=== PATIENT | female | born 1965 | race Caucasian/White ===

== ENCOUNTER 2021-10-30 17:10 | Emergency (ER) | payer OTHER ==
[2021-10-30 17:53] LABS: Absolute Neutrophil Ct (ANC) 6.78 (1.4-6.9); Basophil (Absolute #) 0.05 (0-0.4); Eosinophil % 0.5 % (0.00-5.0); Eosinophil (Absolute #) 0.05 (0-0.5); Hematocrit 42.7 % (35-47); Hemoglobin 14.3 gm/dl (12.0-16.0); Lymphocyte (Absolute #) 1.95 (1.0-4.6); Lymphocytes % 20.8 % (24.0-44.0); Mean Cell Volume 83.7 fl (78-100); Mean Corpuscular Hgb Concent. 33.5 g/dl (32-36); Mean Platelet Volume 10.7 fl (7.5-11.0); Monocyte (Absolute #) 0.55 (0.0-1.3); Monocytes % 5.9 % (0.0-12.0); Neutrophil % 72.3 % (36.0-66.0); Platelet Count 240 K/mm3 (150-450); Red Cell Distribution Width 13.9 % (11.5-14.0); White Blood Count 9.4 K/mm3 (4.0-10.5)
[2021-10-30 17:58] LABS: Appearance CLEAR (CLEAR); Bilirubin NEGATIVE (NEGATIVE); Dipstick done @ ? MAIN LAB; Glucose NEGATIVE (NEGATIVE); Ketones NEGATIVE (NEGATIVE); Nitrite NEGATIVE (NEGATIVE); Protein,Urine Dip NEGATIVE (Negative); RBC NEGATIVE Ery/ul (0-5); Specific Gravity 1.015 (1.005-1.025); Urobilinogen 0.2 mg/dL (0-1)
[2021-10-30 18:02] LABS: ACETAMINOPHEN < 10 ug/ml (10-30); ALBUMIN 4.4 g/dL (3.5-5.0); ALKALINE PHOSPHATASE 96 U/L (38-126); ANION GAP 13.7 MEQ/L (5-15); BLOOD UREA NITROGEN 13 mg/dL (7-17); CHLORIDE 107 mmol/L (98-107); Calcium 9.4 mg/dL (8.4-10.2); Carbon Dioxide 24 mmol/L (22-30); Creatinine 1 0.65 mg/dL (0.52-1.04); EST GLOMERULAR FILTRATION RATE > 60.0 ML/MIN; ETHYL ALCOHOL < 10 mg/dL (0-10); Glucose 109 mg/dL (74-106); SALICYLATE < 1.0 mg/dL (2-20); SGOT/AST 23 U/L (14-36); SGPT/ALT 26 U/L (0-35); SODIUM 140 mmol/L (137-145); Total Protein 7.2 g/dL (6.3-8.2)
[2021-10-30 18:08] LABS: Amphetamine,Urine NEGATIVE (NEGATIVE); Barbiturate,Urine NEGATIVE (NEGATIVE); Benzodiazepine,Urine NEGATIVE (NEGATIVE); Cocaine,Urine NEGATIVE (NEGATIVE); Methadone,Urine NEGATIVE (NEGATIVE); Opiate,Urine NEGATIVE (NEGATIVE); PCP,Urine NEGATIVE (NEGATIVE); THC,Urine NEGATIVE (NEGATIVE)
[2021-10-30] MEDS ORDERED: ATARAX 25 MG ONE (18:41)
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
[2021-10-30] MEDS: Neurontin 100 MG PO STA (18:54)
[2021-10-30] MEDS: ATARAX 25 MG PO ONE (18:54)
[2021-10-30] MEDS: TYLENOL EXTRA STRENGTH 500 MG PO PRN (18:55)
[2021-10-30] MEDS ORDERED: TYLENOL EXTRA STRENGTH 500 MG ONE (18:55)
[2021-10-30 19:04] LABS: INFLUENZA A NEGATIVE (NEGATIVE); INFLUENZA B NEGATIVE (NEGATIVE); RESPIRATORY SYNCTIAL VIRUS NEGATIVE (Negative); SARS-CoV-2 Xpert Express NEGATIVE (NEGATIVE)
[2021-10-30 19:16] VITALS: BP 154/94; PULSE 86; O2SAT 97
== END 2021-10-30 20:50 | disposition short-term general hospital (02) ==
LOC: ED 17:10
DX: R45.850 Homicidal ideations (principal); F31.9 Bipolar disorder, unspecified; R45.1 Restlessness and agitation; F41.9 Anxiety disorder, unspecified; J44.9 Chronic obstructive pulmonary disease, unspecified; E11.9 Type 2 diabetes mellitus without complications; K21.9 Gastro-esophageal reflux disease without esophagitis; Z79.891 Long term (current) use of opiate analgesic; Z79.84 Long term (current) use of oral hypoglycemic drugs; Z79.899 Other long term (current) drug therapy; Z72.0 Tobacco use; Z20.828 Contact with and (suspected) exposure to other viral communicable diseases
CPT/HCPCS: 0241U; 36415; 80053; 80307; 81001; 85025; 93005; 99285; G0480; A9270-GY

== ENCOUNTER 2021-11-07 19:33 | Emergency (ER) | payer OTHER ==
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
[2021-11-07 20:37] VITALS: PULSE 88
[2021-11-07 20:41] LABS: Absolute Neutrophil Ct (ANC) 4.72 (1.4-6.9); Basophil (Absolute #) 0.02 (0-0.4); Eosinophil % 1.4 % (0.00-5.0); Hematocrit 42.3 % (35-47); Hemoglobin 13.7 gm/dl (12.0-16.0); Lymphocyte (Absolute #) 2.02 (1.0-4.6); Lymphocytes % 27.9 % (24.0-44.0); Mean Cell Volume 86.5 fl (78-100); Mean Corpuscular Hgb Concent. 32.4 g/dl (32-36); Mean Platelet Volume 10.4 fl (7.5-11.0); Monocyte (Absolute #) 0.38 (0.0-1.3); Monocytes % 5.2 % (0.0-12.0); Neutrophil % 65.2 % (36.0-66.0); Platelet Count 258 K/mm3 (150-450); Red Blood Count 4.89 M/mm3 (4.1-5.4); Red Cell Distribution Width 14.1 % (11.5-14.0); White Blood Count 7.2 K/mm3 (4.0-10.5)
[2021-11-07 20:46] LABS: Appearance CLEAR (CLEAR); Bacteria RARE /HPF (NEGATIVE); Bilirubin NEGATIVE (NEGATIVE); Dipstick done @ ? MAIN LAB; Epithelial Cells RARE /HPF (FEW); Glucose NEGATIVE (NEGATIVE); Ketones NEGATIVE (NEGATIVE); Nitrite NEGATIVE (NEGATIVE); Protein,Urine Dip NEGATIVE (Negative); RBC NEGATIVE Ery/ul (0-5); Urobilinogen 0.2 mg/dL (0-1); WBC 0-2 /HPF (0-5)
[2021-11-07 20:47] LABS: Urine Cultured Indicated? NO
[2021-11-07 20:53] LABS: ACETAMINOPHEN < 10 ug/ml (10-30); ALBUMIN 4.4 g/dL (3.5-5.0); ALKALINE PHOSPHATASE 84 U/L (38-126); ANION GAP 14.3 MEQ/L (5-15); BLOOD UREA NITROGEN 9 mg/dL (7-17); CHLORIDE 103 mmol/L (98-107); Calcium 9.3 mg/dL (8.4-10.2); Carbon Dioxide 28 mmol/L (22-30); Creatinine 1 0.71 mg/dL (0.52-1.04); EST GLOMERULAR FILTRATION RATE > 60.0 ML/MIN; ETHYL ALCOHOL < 10 mg/dL (0-10); Glucose 87 mg/dL (74-106); Potassium 3.9 mmol/L (3.5-5.1); SALICYLATE < 1.0 mg/dL (2-20); SGOT/AST 20 U/L (14-36); SGPT/ALT 17 U/L (0-35); SODIUM 141 mmol/L (137-145); Total Protein 7.2 g/dL (6.3-8.2)
[2021-11-07 21:00] LABS: Amphetamine,Urine POSITIVE (NEGATIVE); Barbiturate,Urine NEGATIVE (NEGATIVE); Benzodiazepine,Urine NEGATIVE (NEGATIVE); Cocaine,Urine NEGATIVE (NEGATIVE); Methadone,Urine NEGATIVE (NEGATIVE); Opiate,Urine NEGATIVE (NEGATIVE); PCP,Urine NEGATIVE (NEGATIVE); THC,Urine NEGATIVE (NEGATIVE)
[2021-11-07 21:27] LABS: T4 (Thyroxine) 9.85 ug/dL (5.53-10.96); TSH, 3RD Generation 7.06 mIU/L (0.47-4.68)
[2021-11-07 21:44] VITALS: BP 130/87
[2021-11-07 22:27] VITALS: O2SAT 100
== END 2021-11-07 21:46 | disposition home or self-care (01) ==
LOC: ED 19:33
DX: E03.9 Hypothyroidism, unspecified (principal); R53.83 Other fatigue; F31.9 Bipolar disorder, unspecified; E11.9 Type 2 diabetes mellitus without complications; J44.9 Chronic obstructive pulmonary disease, unspecified; K21.9 Gastro-esophageal reflux disease without esophagitis; Z79.899 Other long term (current) drug therapy; Z72.0 Tobacco use
CPT/HCPCS: 36415; 80053; 80164; 80307; 81015; 84436; 84443; 85025; 99283; G0480

== ENCOUNTER 2021-11-20 19:55 | Emergency (ER) | payer OTHER ==
[2021-11-20] MEDS ORDERED: Sodium Chloride 0.9% 1000 ML 1,000 ML IV STA ×2 (20:22)
[2021-11-20] MEDS ORDERED: Zofran 4 MG/2 ML VIAL IV ONE (20:23)
[2021-11-20] MEDS ORDERED: Zofran 4 MG/2 ML VIAL ONE (20:26)
[2021-11-20] MEDS ORDERED: Sodium Chloride 0.9% 1000 ML 2,000 ML ONE (20:26)
--- NOTE | 2021-11-20 20:48 | ERPHSYRPT ---
- History of Present Illness Historian: patient Exam Limitations: no limitations Patient Subjective Stated Complaint: pt states she has had vomiting and diarrhea for 4 days. started coughing and had runny nose today. states she feels like shes dehydrated. Triage Nursing Assessment: pt alert and oriented, answers questions approp. pt ambulatory with steady gait ntoed. respirations nonlabored with lungs cta bilat. skin pink warm and dry. muscous membranes pink and moist. Physician History: 55 yo WF w N/V/D x 4days. Pt has developed cough/coryza over the last 2 days. She denies abdominal pain/hematemesis/melena/hematochezia/chest pain/dyspne a/fever. Timing/Duration: other (4days) Activities at Onset: rest Abdominal Pain Onset Location: other (No pain) Pain Radiation: no radiation Severity of Pain-Max: none Severity of Pain-Current: none Modifying Factors: Improves With: nothing Associated Symptoms: diarrhea, nausea, vomiting, No back, No chest pain, No diaphoresis, No fever/chills, No fatigue, No headache, No heartburn, No loss of appetite, No neck pain, No rash, No shortness of breath, No syncope, No weakness Previous symptoms: no prior history Allergies/Adverse Reactions: No Known Drug Allergies Allergy (Verified 11/20/21 20:27) Home Medications: Divalproex Sodium [Depakote] 500 mg PO BID 11/07/21 [History] Doxepin HCl 100 mg PO HS 11/07/21 [History] Gabapentin 100 mg [Neurontin 100 MG] 100 mg PO TID 11/07/21 [History] Lurasidone HCl [Latuda] 60 mg PO DAILY 11/07/21 [History] Hx Tetanus, Diphtheria Vaccination/Date Given: Yes Hx Influenza Vaccination/Date Given: No Hx Pneumococcal Vaccination/Date Given: No Immunizations Up to Date: Yes Travel Risk - International Travel Have you traveled outside of the country in past 3 weeks: No - Coronavirus Screening Are you exhibiting any of the following symptoms?: Yes Symptoms: Cough: New Onset, Vomiting/Diarrhea, Headaches/Body Aches/Fatigue Close contact with a COVID-19 positive Pt in past 14-21 Days: No - Vaccine Status Have you recieved a Covid-19 vaccination: No - Review of Systems Constitutional: No Symptoms Eyes: No Symptoms Ears, Nose, & Throat: No Symptoms Respiratory: No Symptoms, Cough Cardiac: No Symptoms Abdominal/Gastrointestinal: No Symptoms, Nausea, Vomiting, Diarrhea, No Abdominal Pain Genitourinary Symptoms: No Symptoms Musculoskeletal: No Symptoms Skin: No Symptoms Neurological: No Symptoms Psychological: No Symptoms Endocrine: No Symptoms Hematologic/Lymphatic: No Symptoms Immunological/Allergic: No Symptoms - Past Medical History Pertinent Past Medical History: Yes Neurological History: Migraines, TIA, Other Respiratory History: Asthma, COPD Endocrine Medical History: Diabetes Type II, Hypothyroidism Musculoskeletal History: Fibromyalgia GI Medical History: GERD, Hemorrhoids, Polyps Psycho-Social History: Anxiety, Bipolar, Depression Other Medical History: SUICIDE ATTEMPT 2009- WRIST LACERATIONS W/ INTENTIONS OF SUICIDE (ADMITTED: [facility]), SHORT TERM MEMORY LOSS, PTSD - Past Surgical History Past Surgical History: Yes Neuro Surgical History: No Pertinent History Cardiac: No Pertinent History Respiratory: No Pertinent History Gastrointestinal: Appendectomy Genitourinary: No Pertinent History Musculoskeletal: Orthopedic Surgery Female Surgical History: Section, Tubal Ligation Other Surgical History: TONSILLECTOMY, TUBAL LIGATION, APPENDECTOMY, ABLASION OF UTERUS, TOTAL RECONSTRUCTION RIGHT KNEE, CHILD X 2 - Social History Smoking Status: Current every day smoker How long have you smoked: 38 yrs Exposure to second hand smoke: Yes Drug Use: none Patient Lives Alone: No Significant Family History: no pertinent family hx - Nursing Vital Signs Nursing Vital Signs: Initial Vital Signs Temperature 97.6 F 11/20/21 20:03 Pulse Rate 100 H 11/20/21 20:03 Respiratory Rate 16 11/20/21 20:03 Blood Pressure 160/114 11/20/21 20:03 O2 Sat by Pulse Oximetry 97 11/20/21 20:03 Pain Scale Pain Intensity 0 Hypertensive/Tachy - Physical Exam General Appearance: no apparent distress Eye Exam: PERRL/EOMI, eyes nml inspection Ears, Nose, Throat Exam: normal ENT inspection, TMs normal, pharynx normal, moist mucous membranes Neck Exam: normal inspection, non-tender, supple, full range of motion, No meningismus, No mass, No Brudzinski, No Kernig's, No carotid bruit Respiratory Exam: normal breath sounds, lungs clear, airway intact Cardiovascular Exam: tachycardia, capillary refill <2 sec, No murmur Gastrointestinal/Abdomen Exam: soft, normal bowel sounds, No tenderness Back Exam: normal inspection, normal range of motion, No CVA tenderness Extremity Exam: normal inspection, normal range of motion Neurologic Exam: alert, oriented x 3, cooperative, 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 nml as tested, normal mood/affect, nml cerebellar function, nml station & gait, sensation nml Skin Exam: normal color, warm, dry Lymphatic Exam: adenopathy SpO2 Interpretation: normal SpO2: 97 O2 Delivery: Room Air - Course Nursing assessment & vital signs reviewed: Yes Ordered Tests: Medication Summary Discontinued Medications Generic Name Dose Route Start Last Admin Trade Name Freq PRN Reason Stop Dose Admin Sodium Chloride 1,000 mls @ 999 mls/hr 11/20/21 20:22 11/20/21 20:32 Sodium Chloride 0.9% 1000 Ml IV 11/20/21 21:22 999 mls/hr .Q1H1M STA Administration Sodium Chloride 1,000 mls @ 999 mls/hr 11/20/21 20:22 11/20/21 21:42 Sodium Chloride 0.9% 1000 Ml IV 11/20/21 21:22 999 mls/hr .Q1H1M STA Administration Sodium Chloride Confirm 11/20/21 20:26 Sodium Chloride 0.9% 1000 Ml Administered 11/20/21 20:27 Dose 2,000 mls @ ud .ROUTE .STK-MED ONE Ondansetron HCl 4 mg 11/20/21 20:23 11/20/21 20:32 Ondansetron Hcl 4 Mg/2 Ml Vial IV 11/20/21 20:24 4 mg STAT ONE Administration Ondansetron HCl Confirm 11/20/21 20:26 Ondansetron Hcl 4 Mg/2 Ml Vial Administered 11/20/21 20:27 Dose 4 mg .ROUTE .STK-MED ONE Lab/Rad Data: Laboratory Results 11/20/21 Range/Units 20:30 Influenza Type A Ag NEGATIVE (NEGATIVE) Influenza Type B Ag NEGATIVE (NEGATIVE) RSV (PCR) NEGATIVE (Negative) SARS-CoV-2 (PCR) NEGATIVE (NEGATIVE) - Progress Progress: improved Progress Note: 11/20/21 21:18 2L NS bolus/4mg IV Zofran 11/21/21 04:06 BP decreasing before discharge Counseled pt/family regarding: lab results, diagnosis, need for follow-up - Departure Departure Disposition: Home Clinical Impression: Nausea & vomiting, Diarrhea Condition: Stable Critical Care Time: No Referrals: DOCTOR,NO FAMILY [Primary Care Provider] - Follow up/PCP as directed Instructions: Nausea and Vomiting, Adult (DC) Additional Instructions: Follow up with your family MD Fluids Return to ER for increasing abdominal pain/Temperature greater than 100.5/Inability to hold down fluids Zofran for nausea/vomiting Prescriptions: Ondansetron ODT 4 MG [Zofran Odt 4 mg] 4 mg PO Q6H PRN PRN #10 tablet PRN Reason: Nausea
[2021-11-20 21:12] LABS: INFLUENZA A NEGATIVE (NEGATIVE); INFLUENZA B NEGATIVE (NEGATIVE); RESPIRATORY SYNCTIAL VIRUS NEGATIVE (Negative); SARS-CoV-2 Xpert Express NEGATIVE (NEGATIVE)
[2021-11-20 22:05] VITALS: BP 133/64; PULSE 87
[2021-11-21 04:06] VITALS: O2SAT 97
== END 2021-11-20 22:20 | disposition home or self-care (01) ==
LOC: ED 19:55
DX: R11.2 Nausea with vomiting, unspecified (principal); R19.7 Diarrhea, unspecified; R05.1 Acute cough; R09.81 Nasal congestion; J44.9 Chronic obstructive pulmonary disease, unspecified; E11.9 Type 2 diabetes mellitus without complications; Z72.0 Tobacco use; Z79.899 Other long term (current) drug therapy
CPT/HCPCS: 0241U; 36000; 96374; 99284; J2405